=== PATIENT | female | born 2000 | race Caucasian/White ===

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

== ENCOUNTER 2023-08-22 12:07 | Inpatient (IN) ==
[2023-08-22] MEDS ORDERED: LIDOCAINE 1% LOCAL 20 ML VIAL INFIL PRN (12:38)
[2023-08-22] MEDS: LACTATED RINGER'S 1,000 ML IV PRN (12:43)
--- NOTE | 2023-08-22 12:50 | History & Physical Report ---
Date of Service August 22, 2023 Assessment & Plan (1) Supervision of normal first : Plan: Admit to L&D, EFM/toco. Labs. She desires epidural. History of Present Illness Chief Complaint: contractions Primary Care Provider: Nellie Cool PA-C 22yo @ 40 3/, regular contractions. +FM, no leaking fluid, no vaginal bleeding. Allergies Allergy/AdvReac Type Severity Reaction Status Date / Time No Known Drug Allergies Allergy NKDA Verified 08/22/23 12:27 Home Medications Medication Instructions Recorded Confirmed Type montelukast 10 mg tablet 10 mg PO DAILY 10/05/21 08/22/23 History (Singulair) fexofenadine 180 mg tablet 180 mg PO DAILY 08/20/22 08/22/23 History fluticasone propionate 50 1 spray intranasal DAILY 08/20/22 08/22/23 History mcg/actuation nasal spray,suspension (Flonase Allergy Relief) vits no.124-ferrous fum 1 tab PO DAILY 08/22/23 08/22/23 History 27 mg iron-folic acid 800 mcg tablet ( Vitamin) Patient History Medical History (Updated 08/22/23 @ 12:26 by Iman Lebron RN) OCD (obsessive compulsive disorder) ADHD Anxiety Depression Migraines Surgical History History of surgery Mass removed on L ankle History of appendectomy History of tonsillectomy [place] teeth removed Family History (Updated 01/19/23 @ 10:53 by Carrol Pittman RN) Denies family history of Ovarian cancer Prostate cancer Breast cancer Colorectal cancer Uterine cancer Social History (Updated 08/22/23 @ 12:26 by Iman Lebron RN) Smoking Status: Never smoker Tobacco Type: E-cigarettes / Vaping Do You Dip or Chew Tobacco: No; Hx Alcohol Use: No Hx Substance Use: No Preferred Language: Turkish Communication Ability: Effective Bumboater Required: No Beliefs That Will Affect Care: None marital status: Single marital status details: REMY Verde [phone] Current Living Situation: Significant Other Current Living Situation Comment: David IBAR[place] current occupational status: employed current occupation: [employer] Other Information That Helps Us Care for You: No Feels Safe at Home: Yes Safety Concerns: Feels Safe At This Time Assistive Devices: None Review of Systems All systems reviewed & are unremarkable except as noted in HPI & below Physical Exam Physical Exam: Exam per RN: 6/100/0 FHT Cat 1 [place] Q 2-3 Constitutional: WD/WN, vitals as above Respiratory: normal respiratory effort, lungs clear to auscultation no respiratory distress Cardiovascular: Rate/Rhythm: regular rate and regular rhythm Gastrointestinal (Abdomen): Inspection/Auscultation: abdomen normal to inspection Percussion/Palpation: abdomen soft; abdomen nontender Gravid. No s/s chorio or abruption. Skin: no rashes, warm and dry Psychiatric: A+Ox3, euthymic affect Results & Data Vital Signs (Past 12 Hours) Vital Signs Temp Pulse Resp BP 08/22/23 12:14 37.4 C 20 08/22/23 12:12 86 125/81 Coding Level of Care Code None Diagnoses Supervision of normal first Z34.00
[2023-08-22 13:09] LABS: Hematocrit (blood only) 40.6 % (37.0-47.0); Mean Corpuscular Hemoglobin 30.3 pg (25.0-34.0); Mean Corpuscular Hgb Conc 34.5 g/dL (32.0-36.0); Mean Corpuscular Volume 87.9 fL (80.0-100.0); Mean Platelet Volume 11.6 fL (9.4-12.4); Platelet Count 199 K/uL (130-400); RDW Coefficient of Variation 12.8 % (11.5-14.5); RDW Standard Deviation 41.3 fL (36.4-46.3); Red Blood Count 4.62 M/uL (4.20-5.40); White Blood Count 11.67 K/ul (4.8-10.8)
--- NOTE | 2023-08-22 13:23 | Anesthesiology Consultation ---
Date of Service August 22, 2023 Assessment & Plan Chart Review Chart Review: Patient NOT seen in Pre Admission Testing and Acceptable Risk for Labor Epidural Consults Requested none ASA ASA2 Proposed Anesthesia Anesthesia Type: Labor Epidural Risk / Benefits Reviewed With: PT / POA / Parent / Guardian, Accepts Plan and Informed Consent Obtained History Height/Weight Height: 5 ft 2 in Weight: 76.204 kg Allergies Allergy/AdvReac Type Severity Reaction Status Date / Time No Known Drug Allergies Allergy NKDA Verified 08/22/23 12:27 Medications Home Medications Medication Instructions Recorded Confirmed Last Taken montelukast 10 mg tablet 10 mg PO DAILY 10/05/21 08/22/23 08/21/23 08:00 (Singulair) fexofenadine 180 mg tablet 180 mg PO DAILY 08/20/22 08/22/23 08/21/23 08:00 fluticasone propionate 50 1 spray intranasal DAILY 08/20/22 08/22/23 Unknown mcg/actuation nasal spray,suspension (Flonase Allergy Relief) vits no.124-ferrous fum 1 tab PO DAILY 08/22/23 08/22/23 08/21/23 08:00 27 mg iron-folic acid 800 mcg tablet ( Vitamin) Active Medications Generic Name Dose Route Start Last Admin Trade Name Freq PRN Reason Stop Dose Admin Lactated Ringer's 1,000 mls @ 125 mls/hr 08/22/23 12:38 08/22/23 13:31 Lr IV 08/24/23 12:37 999 mls/hr .Q8H PRN Administration L&D Protocol Protocol NPO Date Last Intake of Fluids: 08/22/23 Time Last Intake of Fluids: 13:15 Date Last Intake of Solids: 08/22/23 Time Last Intake of Solids: 09:00 Past Medical History Medical History OCD (obsessive compulsive disorder) ADHD Anxiety Depression Migraines Exercise / Class Metabolic Activity 1 > 8 Run/Swim/Ski/Tennis Past Family History Family History Denies family history of Ovarian cancer Prostate cancer Breast cancer Colorectal cancer Uterine cancer Past Surgical History Surgical History History of surgery Mass removed on L ankle History of appendectomy History of tonsillectomy [place] teeth removed Past Anesthesia History No Hx of Anesthesia Complications and No Family Hx of Anesthesia Complications History of PONV No Hx of PONV and No Hx of Motion Sickness Social History Do You Dip or Chew Tobacco: No Hx Alcohol Use: No Hx Substance Use: No Review of Systems ROS Unobtainable: All systems reviewed & are unremarkable except as noted in HPI & below Physical Exam Vital Signs Last Vital Signs Temp 37.4 C 08/22/23 12:14 Pulse 77 08/22/23 13:19 Resp 18 08/22/23 12:55 BP 123/75 08/22/23 12:55 Pulse Ox 97 08/22/23 13:19 ENMT Mouth: no TMJ abnormality Thyromental Distance: > or= 3.5 Finger Breadths Mallampati Class: II Neck normal visual inspection and trachea midline; neck extension not limited Respiratory normal respiratory effort Auscultation: lungs clear to auscultation bilaterally Cardiovascular Rate/Rhythm: regular rate and regular rhythm Heart Sounds: no murmur Musculoskeletal Spine: normal cervical ROM Extremities: full ROM of extremities Neurologic moves all extremities Psychiatric Orientation: alert and oriented x 3 Testing Laboratory Results 08/22/23 12:44
[2023-08-22] MEDS: BUPIVACAINE 0.25% PF 30 ML VIAL ONE (13:34)
[2023-08-22] MEDS: fentaNYL citrate PF 100 MCG/2 ML VIAL ONE (13:34)
[2023-08-22] MEDS: LIDOCAINE 2%/EPINEPHRINE 1:200,000 20 ML PF ONE (13:34)
[2023-08-22] MEDS: fentANYL 2 MCG/ML BUPIVacaine 0.125%-NSS 100ML BAG ONE (13:35)
[2023-08-22] MEDS ORDERED: ePHEDrine sulfate 50 MG/ML AMP IV PRN (13:40)
[2023-08-22] MEDS ORDERED: BUPIVACAINE 0.25% PF 30 ML VIAL EPI PRN (13:40)
[2023-08-22] MEDS ORDERED: diphenhydrAMINE 50 MG/ML VIAL IV PRN (13:40)
[2023-08-22] MEDS ORDERED: LIDOCAINE 2% MPF LOCAL 5 ML VIAL EPI PRN (13:40)
[2023-08-22] MEDS ORDERED: SODIUM CHLORIDE 0.9% PF INJ 10 ML VIAL EPI PRN (13:40)
[2023-08-22] MEDS ORDERED: fentANYL 2 MCG/ML BUPIVacaine 0.125%-NSS 100ML BAG EPI PRN (13:40)
[2023-08-22] MEDS ORDERED: NALOXONE HCL 1 MG in SODIUM CHLORIDE 0.9% 1,000 ML IV PRN (13:40)
[2023-08-22] MEDS ORDERED: NALBUPHINE HCL 5 MG in SYRINGE 0 ML IV PRN (13:40)
[2023-08-22] MEDS ORDERED: NALOXONE HCL 0.4 MG/1 ML VIAL/CARP IV PRN (13:40)
[2023-08-22] MEDS ORDERED: ROPIVACAINE 0.5% PF 5 MG/ML 20 ML VIAL EPI PRN (13:40)
[2023-08-22] MEDS ORDERED: fentaNYL citrate PF 100 MCG/2 ML VIAL EPI PRN (13:40)
--- NOTE | 2023-08-22 14:10 | Labor Progress Brief Note ---
Date of Service August 22, 2023 Subjective Pt just rec'd epidural. FHT were previously Cat 1, then had prolonged deceleration. Patient was repositioned, given O2 and IV fluids bolus. FHT returned to 140s with moderate variability. SVE 9/100/0 SROM clear fluid. Continue labor and monitoring FHT - updated on-call OB and handed off care. Assessment & Plan Admission and Anticipated Discharge Date Admission Date: August 22, 2023 Results & Data Vital Signs (Past 12 Hours) Vital Signs Temp Pulse Resp BP Pulse Ox 08/22/23 14:04 100 08/22/23 14:04 71 08/22/23 13:59 100 08/22/23 13:59 80 08/22/23 13:54 96 08/22/23 13:54 64 08/22/23 13:50 77 08/22/23 13:50 131/99 08/22/23 13:49 98 08/22/23 13:49 66 08/22/23 13:46 20 08/22/23 13:46 20 08/22/23 13:44 98 08/22/23 13:44 63 08/22/23 13:41 66 08/22/23 13:41 119/56 L 08/22/23 13:39 98 08/22/23 13:39 63 08/22/23 13:39 67 08/22/23 13:39 116/62 08/22/23 13:38 20 08/22/23 13:38 20 08/22/23 13:38 60 08/22/23 13:38 125/60 08/22/23 13:35 78 08/22/23 13:35 149/74 H 08/22/23 13:34 98 08/22/23 13:34 72 08/22/23 13:31 69 08/22/23 13:31 117/72 08/22/23 13:29 99 08/22/23 13:29 73 08/22/23 13:24 98 08/22/23 13:24 63 08/22/23 13:19 97 08/22/23 13:19 77 08/22/23 13:14 98 08/22/23 13:14 75 08/22/23 13:09 98 08/22/23 13:09 78 08/22/23 13:04 97 08/22/23 13:04 63 08/22/23 12:59 97 08/22/23 12:59 67 08/22/23 12:55 18 08/22/23 12:55 18 08/22/23 12:55 67 08/22/23 12:55 123/75 08/22/23 12:54 97 08/22/23 12:54 62 08/22/23 12:14 37.4 C 20 08/22/23 12:12 86 125/81 Coding Level of Care Code None
[2023-08-22] MEDS: SODIUM CHLORIDE 0.9% PF INJ 10 ML VIAL ONE (18:07)
[2023-08-22] MEDS: ePHEDrine sulfate 50 MG/ML AMP ONE (18:07)
[2023-08-22] MEDS: BUPIVACAINE 0.25% PF 30 ML VIAL EPI STA (18:08)
[2023-08-22] MEDS: fentaNYL citrate PF 100 MCG/2 ML VIAL EPI STA (18:08)
[2023-08-22] MEDS: LIDOCAINE 2%/EPINEPHRINE 1:200,000 20 ML PF EPI STA (18:08)
[2023-08-22] MEDS: SODIUM CHLORIDE 0.9% PF INJ 10 ML VIAL EPI STA (18:09)
[2023-08-22] MEDS: OXYTOCIN 30 UNITS/NSS 30 UNITS/500 ML BAG IV PRN (20:02)
[2023-08-22] MEDS ORDERED: OXYTOCIN 30 UNITS/NSS 30 UNITS/500 ML BAG IV PRN (20:19)
[2023-08-22] MEDS ORDERED: HYDROCORTISONE ACETATE 25 MG SUPP PR PRN (20:19)
[2023-08-22] MEDS ORDERED: bisacodyL 10 MG SUPP PR PRN (20:19)
--- NOTE | 2023-08-22 20:23 | Delivery Summary ---
Vaginal Delivery Summary Date of Service August 22, 2023 Vaginal Delivery Summary and 2nd Degree LAC Progressed to 10 cm dilated 100% effaced pressure intact perineum with epidural delivered a viable female with weight and Apgars pending. Head delivered in direct OP and shoulders and body quickly followed. was noted be vigorous soon after delivery and a 1 minute delayed cord clamping was initiated. Cord was then double clamped and cut and remained on mat ernal abdomen. Cord blood obtained and attention turned to live with placenta which delivered intact with three-vessel cord with gentle cord traction. Inspection of perineum vagina cervix there is noted to be a second-degree perineal laceration which repaired with 3-0 Vicryl in traditional crown stitch. Needle sponge and instrument counts were correct at the completion of the case. No complications noted and blood loss per QBL. [facility] Vaginal Delivery Charge Delivery Type Details: and 2nd Degree LAC
[2023-08-22] MEDS: BENZOCAINE 20% SPRY 85 APPLN/85 GM CAN EXT PRN (22:45)
[2023-08-22] MEDS: DOCUSATE SODIUM 100 MG CAP PO SCH (23:08)
[2023-08-23 06:37] LABS: Hematocrit (blood only) 36.5 % (37.0-47.0); Hemoglobin 12.6 g/dl (12.0-16.0)
--- NOTE | 2023-08-23 06:49 | Obstetrical Progress Note ---
Date of Service <Amy Louie DO - Last Filed: 08/23/23 06:51> August 23, 2023 Assessment & Plan <Amy Louie DO - Last Filed: 08/23/23 06:51> (1) care following vaginal delivery: Feels well today. Eating well, voiding well, ambulating well. Pain well controlled with prn analgesic regime. Routine care; OOB, ambulation, continue regular diet. Anticipate discharge 24-48 hours after , most likely tomorrow. After discharge will have 6 week follow-up with Dr. Soto. <Jono Soto MD - Last Filed: 08/23/23 07:25> (1) care following vaginal delivery: Subjective <Amy Louie DO - Last Filed: 08/23/23 06:51> Pt is a 22 y/o female who is PPD#1 following at 40 weeks. Today, pt states she is feeling well. No major questions or complaints this morning. She states she ate a sandwich last night and it settled well with no issues. She states her bleeding is fairly light and cramping is mild. She states most of the pain she has right now is just discomfort in her bottom. She is voiding without issue. She is bottlefeeding currently and it is going well. Constitutional: no fever, no chills or no sweats Respiratory: no dyspnea Cardiovascular: no chest pain or no palpitations Breast: no breast pain Genitourinary (female): no dysuria Neurologic: no headache(s) no changes in vision, no headaches Physical Exam <Amy Louie DO - Last Filed: 08/23/23 06:51> General: Alert, oriented. No acute distress. Cardiac: Regular rate and rhythm, no murmurs, rubs, or gallops. Respiratory: Clear to auscultation bilaterally, no wheezes/rales/rhonchi. No increased work of breathing. Symmetrical chest rise. No respiratory distress. Abdomen: Soft, nontender, nondistended. Bowel sounds present. Uterus: Uterine fundus firm, palpable 2 cm below the umbilicus. Lower extremities: No deep calf pain. Results & Data <Amy Louie DO - Last Filed: 08/23/23 06:51> Vital Signs (Past 12 Hours) Vital Signs Temp Pulse Pulse Resp BP BP Pulse Ox 08/23/23 03:15 36.8 C 59 L 16 109/68 98 08/22/23 23:30 36.6 C 67 18 103/61 97 08/22/23 22:40 97 08/22/23 22:40 87 08/22/23 22:35 96 08/22/23 22:35 70 08/22/23 22:35 109/56 L 08/22/23 22:30 96 08/22/23 22:30 75 08/22/23 22:25 96 08/22/23 22:25 74 08/22/23 22:20 97 08/22/23 22:20 69 08/22/23 22:20 71 08/22/23 22:20 108/58 L 08/22/23 22:15 97 08/22/23 22:15 73 08/22/23 22:10 97 08/22/23 22:10 63 08/22/23 22:05 97 08/22/23 22:05 72 08/22/23 22:05 68 08/22/23 22:05 107/58 L 08/22/23 22:00 97 08/22/23 22:00 84 08/22/23 21:55 97 08/22/23 21:55 69 08/22/23 21:53 71 08/22/23 21:53 108/59 L 08/22/23 21:50 97 08/22/23 21:50 67 08/22/23 21:45 97 08/22/23 21:45 76 08/22/23 21:40 97 08/22/23 21:40 62 08/22/23 21:36 77 08/22/23 21:36 116/59 L 08/22/23 21:35 96 08/22/23 21:35 76 08/22/23 21:30 96 08/22/23 21:30 66 08/22/23 21:25 96 08/22/23 21:25 67 08/22/23 21:20 96 08/22/23 21:20 59 L 08/22/23 21:20 115/69 08/22/23 21:15 97 08/22/23 21:15 64 08/22/23 21:10 97 08/22/23 21:10 67 08/22/23 21:05 98 08/22/23 21:05 54 L 08/22/23 21:05 114/59 L 08/22/23 21:00 98 08/22/23 21:00 56 L 08/22/23 20:55 97 08/22/23 20:55 71 08/22/23 20:50 96 08/22/23 20:50 65 08/22/23 20:50 115/73 08/22/23 20:45 97 08/22/23 20:45 72 08/22/23 20:44 63 08/22/23 20:44 110/76 08/22/23 20:40 98 08/22/23 20:40 64 08/22/23 20:35 99 08/22/23 20:35 66 08/22/23 20:30 98 08/22/23 20:30 64 08/22/23 20:25 97 08/22/23 20:25 71 08/22/23 20:23 83 08/22/23 20:23 125/72 08/22/23 20:20 97 08/22/23 20:20 73 08/22/23 20:15 97 08/22/23 20:15 62 08/22/23 20:10 98 08/22/23 20:10 65 08/22/23 20:05 97 08/22/23 20:05 77 08/22/23 20:00 97 08/22/23 20:00 91 H 08/22/23 19:55 96 08/22/23 19:55 88 08/22/23 19:50 98 08/22/23 19:50 111 H 08/22/23 19:45 97 08/22/23 19:45 72 08/22/23 19:40 96 08/22/23 19:40 83 08/22/23 19:38 94 08/22/23 19:38 112 H 08/22/23 19:34 97 08/22/23 19:34 70 08/22/23 19:32 87 L 08/22/23 19:32 105 H 08/22/23 19:29 98 08/22/23 19:29 66 08/22/23 19:24 97 08/22/23 19:24 69 08/22/23 19:22 87 L 08/22/23 19:22 65 08/22/23 19:20 57 L 08/22/23 19:20 120/57 L 08/22/23 19:19 97 08/22/23 19:19 92 H 08/22/23 19:17 88 L 08/22/23 19:17 69 08/22/23 19:14 96 08/22/23 19:14 80 08/22/23 19:12 90 08/22/23 19:12 105 H 08/22/23 19:09 97 08/22/23 19:09 74 08/22/23 19:05 93 08/22/23 19:05 109 H 08/22/23 19:04 97 08/22/23 19:04 77 08/22/23 18:59 97 08/22/23 18:59 67 08/22/23 18:54 98 08/22/23 18:54 80 08/22/23 18:49 99 08/22/23 18:49 63 O2 Del Method 08/23/23 03:15 Room Air 08/22/23 23:30 Room Air 08/22/23 22:40 08/22/23 22:40 08/22/23 22:35 08/22/23 22:35 08/22/23 22:35 08/22/23 22:30 08/22/23 22:30 08/22/23 22:25 08/22/23 22:25 08/22/23 22:20 08/22/23 22:20 08/22/23 22:20 08/22/23 22:20 08/22/23 22:15 08/22/23 22:15 08/22/23 22:10 08/22/23 22:10 08/22/23 22:05 08/22/23 22:05 08/22/23 22:05 08/22/23 22:05 08/22/23 22:00 08/22/23 22:00 08/22/23 21:55 08/22/23 21:55 08/22/23 21:53 08/22/23 21:53 08/22/23 21:50 08/22/23 21:50 08/22/23 21:45 08/22/23 21:45 08/22/23 21:40 08/22/23 21:40 08/22/23 21:36 08/22/23 21:36 08/22/23 21:35 08/22/23 21:35 08/22/23 21:30 08/22/23 21:30 08/22/23 21:25 08/22/23 21:25 08/22/23 21:20 08/22/23 21:20 08/22/23 21:20 08/22/23 21:15 08/22/23 21:15 08/22/23 21:10 08/22/23 21:10 08/22/23 21:05 08/22/23 21:05 08/22/23 21:05 08/22/23 21:00 08/22/23 21:00 08/22/23 20:55 08/22/23 20:55 08/22/23 20:50 08/22/23 20:50 08/22/23 20:50 08/22/23 20:45 08/22/23 20:45 08/22/23 20:44 08/22/23 20:44 08/22/23 20:40 08/22/23 20:40 08/22/23 20:35 08/22/23 20:35 08/22/23 20:30 08/22/23 20:30 08/22/23 20:25 08/22/23 20:25 08/22/23 20:23 08/22/23 20:23 08/22/23 20:20 08/22/23 20:20 08/22/23 20:15 08/22/23 20:15 08/22/23 20:10 08/22/23 20:10 08/22/23 20:05 08/22/23 20:05 08/22/23 20:00 08/22/23 20:00 08/22/23 19:55 08/22/23 19:55 08/22/23 19:50 08/22/23 19:50 08/22/23 19:45 08/22/23 19:45 08/22/23 19:40 08/22/23 19:40 08/22/23 19:38 08/22/23 19:38 08/22/23 19:34 08/22/23 19:34 08/22/23 19:32 08/22/23 19:32 08/22/23 19:29 08/22/23 19:29 08/22/23 19:24 08/22/23 19:24 08/22/23 19:22 08/22/23 19:22 08/22/23 19:20 08/22/23 19:20 08/22/23 19:19 08/22/23 19:19 08/22/23 19:17 08/22/23 19:17 08/22/23 19:14 08/22/23 19:14 08/22/23 19:12 08/22/23 19:12 08/22/23 19:09 08/22/23 19:09 08/22/23 19:05 08/22/23 19:05 08/22/23 19:04 08/22/23 19:04 08/22/23 18:59 08/22/23 18:59 08/22/23 18:54 08/22/23 18:54 08/22/23 18:49 08/22/23 18:49 Supervising Physician <Jono Soto MD - Last Filed: 08/23/23 07:25> Co-Signing Physician Notes Patient seen with resident and agree with the above findings and plan. Doing well today. routine care Resident Activity Tracking <Amy Louie DO - Last Filed: 08/23/23 06:51> Resident Involvement: Resident Care Provided Care Provided: OB Delivery
[2023-08-23] MEDS: FERROUS SULFATE 325 MG TAB PO SCH (07:38)
[2023-08-23] MEDS: IBUPROFEN 600 MG TAB PO PRN (07:38)
[2023-08-23] MEDS: PRENATAL VITAMIN 1 TAB PO SCH (07:38)
--- NOTE | 2023-08-23 09:12 | Anesthesia Procedure Note ---
Date of Service August 23, 2023 Anesthesia Post Epidural Note Vital Signs Vital Signs: Temp Pulse Resp BP Pulse Ox O2 Del Method 37.0 C 55 L 16 108/70 99 Room Air 08/23/23 07:20 08/23/23 07:20 08/23/23 07:20 08/23/23 07:20 08/23/23 07:20 08/23/23 07:20 Pain Intensity Perineal: Pain Intensity: 3 Notes Mental Status: alert / awake / arousable Nausea / Vomiting: adequately controlled Pain: adequately controlled Airway Patency, RR, SpO2: stable & adequate BP & HR: stable & adequate Hydration State: stable & adequate Neuraxial Anesthesia: was administered and sensory block is resolving Anesthetic Complications: no major complications apparent Epidural: Removed without complications and With tip intact
[2023-08-23] MEDS: ACETAMINOPHEN 325 MG TAB PO PRN (14:31)
[2023-08-23] MEDS: DIPHTHER/TETAN/PERTUS Vaccine (Tdap, Adol/Adult) 0.5mL IM ONE (19:07)
[2023-08-23] MEDS: bisacodyL 5 MG TABEC PO SCH (21:12)
--- NOTE | 2023-08-24 07:10 | Obstetrical Progress Note ---
Date of Service <Amy Mcconnell DO Jacy - Last Filed: 08/24/23 07:27> August 24, 2023 Assessment & Plan <Amy Mcconnell DO Jacy - Last Filed: 08/24/23 07:27> (1) care following vaginal delivery: Continuing to feel well today. Eating well, voiding well, ambulating well still. Pain well controlled with prn analgesic regime. Routine care; OOB, ambulation, continue regular diet. Anticipate discharge 24-48 hours after , today. After discharge will have 6 week follow-up with Dr. Soto. <Moni Junior MD, FACOG - Last Filed: 08/24/23 08:11> (1) care following vaginal delivery: Subjective <Amy Mcconnell DO Jacy - Last Filed: 08/24/23 07:27> Pt is a 22 y/o female who is PPD#2 following at 40 weeks. Today, pt states she is continuing to feel well. Pain is very mild and bleeding is minimal. Bottle feeding is going well. Continuing to ambulate, void, and tolerate oral intake without issue. Would like to go home today. No questions or complaints at this time. Constitutional: no fever, no chills or no sweats Respiratory: no dyspnea Cardiovascular: no chest pain or no palpitations Breast: no breast pain Genitourinary (female): no dysuria Neurologic: no headache(s) Physical Exam <Amy Mcconnell DO Jacy - Last Filed: 08/24/23 07:27> General: Alert, oriented. No acute distress. Cardiac: Regular rate and rhythm, no murmurs, rubs, or gallops. Respiratory: Clear to auscultation bilaterally, no wheezes/rales/rhonchi. No increased work of breathing. Symmetrical chest rise. No respiratory distress. Abdomen: Soft, nontender, nondistended. Bowel sounds present. Uterus: Uterine fundus firm, palpable just below the umbilicus. Lower extremities: No deep calf pain. Results & Data <Amy Enedina Louie DO - Last Filed: 08/24/23 07:27> Vital Signs (Past 12 Hours) Vital Signs Temp Pulse Resp BP 08/23/23 23:55 36.9 C 65 18 110/68 08/23/23 19:31 36.9 C 81 18 122/78 Supervising Physician <Moni Junior MD, FACOG - Last Filed: 08/24/23 08:11> Co-Signing Physician Notes Resident Physician Supervision Note: I was present with Dr. Louie during the history and exam. I discussed the case with the resident and agree with the findings and plan as documented in the note. Any exceptions or clarifications are listed here: stable doing well ready to go home. abd soft ff 2 down nt, ext nt calves. ppd#2 s/p , instructions reviewed. f/u 6 wks office reviewed. rhpos, ri, bottle feeding. dc home. Documented By: Moni Junior MD, FACOG Resident Activity Tracking <Amy Louie DO - Last Filed: 08/24/23 07:27> Resident Involvement: Resident Care Provided Care Provided: OB Delivery
== END 2023-08-24 12:10 | disposition home or self-care (01) | DRG 807 ==
LOC: OPB 12:07 → 4S1 12:08 → 4E2 23:18